=== PATIENT | male | born 1975 | race African-American/Black ===

== ENCOUNTER 2021-05-31 18:58 | Emergency (ER) | payer MEDICAID ==
[~2021-05-31] VITALS: Ht 208.3 cm; Wt 100.0 kg
[2021-05-31 19:01] VITALS: BP 181/111
[2021-05-31 20:28] LABS: EOSINOPHILS % 3.7 % (0.0-5.0); HEMOGLOBIN. 13.9 g/dL (14.0-18.0); LYMPHOCYTES % 21.7 % (20.0-50.0); MEAN CORPUSCULAR HEMOGLOBIN 29.9 pg (28.0-32.0); MEAN CORPUSCULAR VOLUME 87.8 fL (80.0-94.0); MEAN PLATELET VOLUME 10.5 fl (7.4-10.4); NEUTROPHILS % 60.6 % (40.0-76.0); PLATELET 210 x1000/uL (130-400); RED BLOOD CELL COUNT 4.66 mill/uL (4.7-6.1); RED CELL DISTRIBUTION WIDTH 13.4 % (11.6-14.6)
[2021-05-31 20:35] LABS: CHLORIDE 110 mEq/L (98-107)
[2021-05-31] MEDS ORDERED: ALBU90AE INH (21:29)
[2021-05-31] MEDS ORDERED: P20 MT (21:29)
[2021-05-31] MEDS ORDERED: PREDNISONE 20MG TABLET PO NR (21:30)
[2021-05-31] MEDS ORDERED: ACETAMINOPHEN 500MG TABLET PO NR (21:30)
[2021-05-31 22:33] LABS: *AMPHETAMINES SCREEN URINE NEGATIVE (NEGATIVE); *BARBITURATES SCREEN URINE NEGATIVE (NEGATIVE); *BENZODIAZEPINES SCREEN URINE NEGATIVE (NEGATIVE); *COCAINE SCREEN URINE NEGATIVE (NEGATIVE); CANNABINOID URINE SCREEN PRESUMTIVE POSITIVE (NEGATIVE); OPIATES URINE SCREEN NEGATIVE (NEGATIVE); PHENCYCLIDINE URINE SCREEN NEGATIVE (NEGATIVE)
[2021-06-03 13:16] LABS: METHADONE URINE SCREEN NEGATIVE (NEGATIVE)
== END 2021-05-31 21:54 | disposition home or self-care (01) ==
LOC: ER 18:58
DX: J45.909 Unspecified asthma, uncomplicated (principal); I10 Essential (primary) hypertension
CPT/HCPCS: 36415; 71045; 80053; 80305; 83880; 84484; 85025; 93005; 99285; J7512

== ENCOUNTER 2021-06-01 02:09 | Emergency (ER) | payer MEDICAID ==
[~2021-06-01] VITALS: Ht 182.9 cm; Wt 100.0 kg
[~2021-06-01 02:09] MED LIST: ALBU90AE INH; P20 MT
[2021-06-01 02:42] VITALS: BP 139/103
[2021-06-01] MEDS ORDERED: MAGNESIUM/ALUMINUM HYDROXIDE/SIMETHICONE 30ML UDC PO STA (04:02)
== END 2021-06-01 04:26 | disposition home or self-care (01) ==
LOC: ER 02:09
DX: R07.9 Chest pain, unspecified (principal); J45.909 Unspecified asthma, uncomplicated; F31.9 Bipolar disorder, unspecified; I10 Essential (primary) hypertension
CPT/HCPCS: 93005; 99283